=== PATIENT | female | born 1975 | race Caucasian/White ===

== ENCOUNTER 2017-08-05 15:03 | Emergency (ER) | payer SELFPAY ==
[~2017-08-05] VITALS: Ht 167.6 cm; Wt 96.4 kg
[~2017-08-05 15:03] MED LIST: ANTIVERT25 MG PO; CEFTIN500 MG PO; CETRAXAL1 EACH LEFT EAR; CLARITIN10 M3 PO; ERGOCALCIF50000 UNIT PO; FLONASE16 G1 BOTH NARES; Flagyl PO; MECLIZINE HCL25 MG PO; NASONEX17 GM; PRILOSEC40 MG PO; VALIUM5 MG PO; ZOFRAN ODT8 MG PO; ZOFRAN4 MG PO
[2017-08-05] MEDS ORDERED: MOTRIN600 MG PO (17:02)
[2017-08-05] MEDS ORDERED: KEFLEX500 MG PO (17:02)
[2017-08-05] MEDS ORDERED: NORCO 5/3251 TABLET PO (17:02)
[2017-08-05 17:21] VITALS: BP 144/94
== END 2017-08-05 17:23 | disposition home or self-care (01) ==
LOC: EME 15:03
PROC: 0H9BXZZ Drainage of Right Upper Arm Skin, External Approach (ICD-10-PCS; principal; 2017-08-05)
DX: L72.3 Sebaceous cyst (principal); L03.111 Cellulitis of right axilla; F17.200 Nicotine dependence, unspecified, uncomplicated
CPT/HCPCS: 87070; 87075; 87205; 99281; 99285